=== PATIENT | male | born 1955 | race Caucasian/White ===

== ENCOUNTER 2021-01-23 15:11 | Inpatient (IN) ==
[2021-01-23] MEDS ORDERED: SODIUM CHLORIDE 0.9% 1000ML 1,000 ML IV ONE ×2 (15:46→16:53)
--- NOTE | 2021-01-23 15:57 | XRay Report ---
XR chest 1V portable HISTORY: 65 years-old Male SOB acute shortness of breath COMPARISON: None TECHNIQUE: Portable AP view of the chest FINDINGS: Cardiac mediastinal and hilar silhouettes are within normal limits. Minimal left lung base opacities suggest atelectasis. There is no pneumothorax, pleural effusion, airspace consolidation or overt pulm onary edema. Degenerative changes of the shoulders and spine. IMPRESSION: No acute process. ACT 112: Negative or not required by law. The above report was generated using voice recognition software. It may contain grammatical, syntax o r spelling errors. Electronically signed by: Tomas Liu M.D. 01/23/2021 3:55 PM
[2021-01-23 16:17] LABS: Partial Thromboplastin Ratio 1.1; Partial Thromboplastin Time 27.9 Seconds (21.0-31.0); Prothrombin Time 10.3 Seconds (9.0-12.0)
[2021-01-23 16:22] LABS: Alanine Aminotransferase 47 U/L (12-78); Albumin Level 2.5 gm/dl (3.4-5.0); Aspartate Aminotransferase 54 U/L (15-37); BUN Creatinine Ratio 15.1 (10-20); Blood Urea Nitrogen 21 mg/dl (7-18); Carbon Dioxide 22 mmol/L (21-32); Chloride 101 mmol/L (98-107); Est GFR (African American) 62.6 ml/min; Glucose 117 mg/dl (70-99); Potassium 3.8 mmol/L (3.5-5.1); Sodium 135 mmol/L (136-145)
[2021-01-23 16:26] LABS: Albumin Globulin Ratio 0.6 (0.9-2); Alkaline Phosphatase 92 U/L (45-117); Bilirubin,Total 1.6 mg/dl (0.2-1); Globulin 4.1 gm/dl (2.5-4.0); Total Protein 6.6 gm/dl (6.4-8.2); Troponin I < 0.015 ng/ml (0-0.045)
[2021-01-23 16:47] LABS: ALC (manual) 1.19 K/uL (1.2-3.4); ANC (manual) 4.36 K/uL (1.4-6.5); Basophils % (manual) 1.7 %; Hematocrit (blood only) 48.1 % (42-52); Hemoglobin 16.9 g/dL (14.0-18.0); Lymphocytes % (manual) 3.4 %; Mean Corpuscular Hemoglobin 29.7 pg (25-34); Mean Corpuscular Hgb Conc 35.1 g/dL (32-36); Mean Corpuscular Volume 84.5 fL (80-100); Mean Platelet Volume 12.2 fL (7.4-10.4); Monocytes # (manual) 0.36 K/uL (0.11-0.59); Neutrophils # (manual) 4.36 K/uL (1.4-6.5); Neutrophils % (manual) 72.5 %; Platelet Count 43 K/uL (130-400); RDW Standard Deviation 40.3 fL (36.4-46.3); Reactive Lymphocytes # (manual) 0.99 K/uL; Reactive Lymphocytes % (manual) 16.4 %; Red Blood Count 5.69 M/uL (4.7-6.1); White Blood Count 6.01 K/uL (4.8-10.8)
--- NOTE | 2021-01-23 18:00 | Emergency Department Note ---
History of Present Illness General Chief complaint: Respiratory Problems Stated complaint: TROUBLE BREATHING,RAPID HR/FEVER Time Seen by Provider: 01/23/21 15:39 Source: patient Mode of arrival: ambulatory Limitations: no limitations History of Present Illness Provider complaint: cough, vomiting Onset (ago): week(s) 3 Maximum Pain Intensity: 9 Associated symptoms: + cough, + loss of appetite, + malaise, + nausea/vomiting and + weakness; no chest pain, no fever/chills, no headaches or no shortness of breath Treatments prior to arrival: none This is a 65-year-old male presents the emergency department due to concern for persistent cough, shortness of breath, vomiting, and dehydration. Patient states he has been ill over the last 2 weeks, has been seen twice including it at the [facility] emergency room. Patient states he has undergone to test for Covid which were both negative. He states he has had labs and CT of the chest done. He states he still feels ill, cough to the point of vomiting, and cannot sleep, and "feels like he is going to ". 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 At [facility] patient underwent labs as well as CT imaging. Patient found at that time to have a platelet count of 111, CRP high at 63, procalcitonin high at 0.80, bilirubin 1.4, creatinine 1.5, sodium 130. CT imaging of the chest was performed to rule out PE. No PE noted, no evidence of infiltrate or edema. Patient had a negative troponin at that time as well as a negative viral respiratory panel. Pt seen during a time of high acuity and national emergency pandemic while wearing PPE. Home Medications Medication Instructions Recorded Confirmed Type benzonatate 100 mg capsule 100 mg PO TID PRN 01/23/21 01/23/21 History lisinopril 10 mg tablet 10 mg PO DAILY 01/23/21 01/23/21 History prednisone 20 mg tablet 20 mg PO UD 01/23/21 01/23/21 History Allergies Allergy/AdvReac Type Severity Reaction Status Date / Time amoxicillin Allergy Rash Verified 01/23/21 19:15 Past Med/Surg History Medical History (Updated 01/25/21 @ 11:33 by Graciela Hayden DO) History of TIA (transient ischemic attack) HTN (hypertension) Surgical History (Updated 01/24/21 @ 13:52 by Danielle Jeffries PA-C) History of umbilical hernia repair History of vein stripping Social History Smoking Status: Never smoker Second Hand Exposure: No; Do You Dip or Chew Tobacco: No; Tobacco Cessation Education Requested by Patient: No Hx Alcohol Use: No Hx Substance Use: No Preferred Language: Croatian French Cord Binder Required: No Beliefs That Will Affect Care: None Current Living Situation: Family Current Living Situation Comment: Lives with son. Other Information That Helps Us Care for You: No Feels Safe at Home: Yes Safety Concerns: Feels Safe At This Time Assistive Devices: None Review of Systems A total of 10 systems reviewed and were otherwise negative All systems reviewed & are unremarkable except as noted in HPI & below Physical Exam Vital Signs Vital Signs - 24 hr 01/23/21 15:20 01/23/21 16:44 01/23/21 18:00 Temperature 36.5 C Temperature Source Temporal Artery Scan Pulse Rate 103 H Pulse Rate [Right Finger] 87 66 Pulse Rhythm Regular Pulse Rhythm [Right Finger] Regular Regular Pulse Strength Normal Pulse Strength [Right Finger] Normal Normal Respiratory Rate 20 18 16 Respiratory Effort / Characteristics Non-Labored Spontaneous Non-Labored Non-Labored Respiratory Depth Normal Normal Normal Respiratory Pattern Regular Regular Blood Pressure 108/68 Blood Pressure [Right Arm] 103/62 113/61 Blood Pressure Mean 81 Blood Pressure Mean [Right Arm] 75 78 Blood Pressure Position Sitting Blood Pressure Position [Right Arm] Lying Lying Pulse Oximetry 96 96 97 Oxygen Delivery Method Room Air Room Air Room Air Sepsis Recent Fever Within 48 Hours No Sepsis New/Unexplained Change in Mental Status No Sepsis Action Taken by Nursing No Action Required GENERAL: alert, ill and anxious appearing, well nourished, no distress, non- toxic EYE EXAM: normal conjunctiva, PERRL and EOM's grossly intact OROPHARYNX: no exudate, no erythema, lips, buccal mucosa, and tongue normal and mucous membranes are moist NECK: supple, no nuchal rigidity, no adenopathy, non-tender LUNGS: Clear to auscultation. Normal chest wall mechanics, no w/r/r HEART: no murmurs, S1 normal and S2 normal ABDOMEN: abdomen soft, non-tender, normo-active bowel sounds, no masses, no rebound or guarding. BACK: Back is symmetrical on inspection and there is no deformity, no midline tenderness, no CVA tenderness. SKIN: no rashes and no bruising UPPER EXTREMITIES: upper extremities are grossly normal. FROM, nml pulses b/l. LOWER EXTREMITIES: No pitting edema. FROM, nml pulses b/l. NEURO EXAM: Normal sensorium, cranial nerves II-XII grossly intact, normal speech, no gross weakness of arms, no gross weakness of legs. Gross sensation intact. Course Course 1729: Patient sleeping, IV fluids running, vital signs stable. Updated son at bedside. Some concern for possible exposure to mice droppings as he was in a cabin "at camp" over the last 3 weeks. Son states he also had in upper respiratory infection which lasted several days although he improved fairly quickly. He states no one also had visited his dad at camp seem to be ill during their stay. 0: Son states patient seems improved although still not acting completely himself. Patient states he is feeling improved, no obvious respiratory distress, no coughing fits noted. I did update them on additional results. 1950: Case discussed with Dr. Khan. Labs for tickborne illness still pending at this time, send out miscellaneous test obtained for hantavirus. Administered Medications Doxycycline Hyclate (Doxycycline Hyclate 100 Mg Cap) 100 mg PO BID BETTY Stop: 02/03/21 08:59 Last Admin: 01/25/21 09:58 Dose: 100 mg Documented by: [id number] Admin: 01/24/21 21:53 Dose: 100 mg Documented by: [id number] Admin: 01/24/21 07:22 Dose: 100 mg Documented by: [id number] Ceftriaxone Sodium 2,000 mg/ (Dextrose) 70 mls @ 100 mls/hr IV DAILY BETTY; Protocol Stop: 01/26/21 08:59 Last Infusion: 01/25/21 10:59 Dose: 0 mls/hr Documented by: [id number] Admin: 01/25/21 10:17 Dose: 100 mls/hr Documented by: [id number] Infusion: 01/24/21 11:53 Dose: 0 mls/hr Documented by: [id number] Admin: 01/24/21 11:02 Dose: 100 mls/hr Documented by: [id number] Lisinopril (Lisinopril 10 Mg Tab) 10 mg PO DAILY BETTY Stop: 02/23/21 08:59 Last Admin: 01/25/21 09:58 Dose: Not Given Documented by: [id number] Admin: 01/24/21 07:22 Dose: 10 mg Documented by: [id number] Discontinued Medications Sodium Chloride (Nss 1000ml) 1,000 mls @ 999 mls/hr IV .Q1H1M ONE Stop: 01/23/21 16:46 Last Infusion: 01/23/21 18:07 Dose: 0 mls/hr Documented by: [id number] Admin: 01/23/21 17:02 Dose: 999 mls/hr Documented by: [id number] Sodium Chloride (Nss 1000ml) 1,000 mls @ 999 mls/hr IV .Q1H1M ONE Stop: 01/23/21 17:53 Last Infusion: 01/23/21 18:07 Dose: 0 mls/hr Documented by: [id number] Admin: 01/23/21 17:02 Dose: 999 mls/hr Documented by: [id number] Potassium Chloride/Sodium Chloride (Normal Saline W/20 Meq Kcl) 20 meq in 1,000 mls @ 80 mls/hr IV .[id number] ONE Stop: 01/24/21 11:29 Last Infusion: 01/24/21 11:32 Dose: 0 mls/hr Documented by: [id number] Infusion: 01/24/21 06:40 Dose: 80 mls/hr Documented by: [id number] Admin: 01/23/21 23:00 Dose: 80 mls/hr Documented by: [id number] Doxycycline Hyclate 100 mg/ (Dextrose) 110 mls @ 50 mls/hr IV NOW STA Stop: 01/24/21 01:00 Last Infusion: 01/24/21 01:41 Dose: 0 mls/hr Documented by: [id number] Admin: 01/23/21 23:19 Dose: 50 mls/hr Documented by: [id number] Medical Decision Making Differential Diagnosis Differential: Gastroenteritis, Food Borne, Esophageal Perforation, , Electrolyte Abnormality, Dehydration, Intraabdominal Infection, UTI/Pyelonephritis, Bowel Obstruction, Biliary Pathology, amongst other pathology entertained. Medical Records Attestation: I reviewed the patient's medical records. Home Medications Current Medication List: was personally reviewed by me Laboratory Data Attestation: I reviewed the patient's lab results. Result diagrams: 01/25/21 09:12 01/25/21 09:12 Lab Results 01/23/21 01/23/21 01/23/21 Range/Units 15:50 15:50 15:50 WBC 6.01 (4.8-10.8) K/uL RBC 5.69 (4.7-6.1) M/uL Hgb 16.9 (14.0-18.0) g/dL Hct 48.1 (42-52) % MCV 84.5 (80-100) fL MCH 29.7 (25-34) pg MCHC 35.1 (32-36) g/dL RDW Std Deviation 40.3 (36.4-46.3) fL RDW Coeff of Rosalinda 13.0 (11.5-14.5) % Plt Count 43 L (130-400) K/uL MPV 12.2 H (7.4-10.4) fL Neutrophils % (Manual) 72.5 % Lymphocytes % (Manual) 3.4 % Reactive Lymphs % (Man) 16.4 % Monocytes % (Manual) 6.0 % Eosinophils % (Manual) % Basophils % (Manual) 1.7 % Neutrophils # (Manual) 4.36 (1.4-6.5) K/uL Total Absolute Neuts 4.36 (1.4-6.5) K/uL Lymphocytes # (Manual) 0.20 L (1.2-3.4) K/uL Reactive Lymphs # 0.99 K/uL Total Abs Lymphocytes 1.19 L (1.2-3.4) K/uL Monocytes # (Manual) 0.36 (0.11-0.59) K/uL Eosinophils # (Manual) (0-0.5) K/uL Basophils # (Manual) 0.10 (0-0.2) K/uL PT 10.3 (9.0-12.0) Seconds INR 1.0 (0.9-1.1) APTT 27.9 (21.0-31.0) Seconds PTT Ratio 1.1 Sodium 135 L (136-145) mmol/L Potassium 3.8 (3.5-5.1) mmol/L Chloride 101 (98-107) mmol/L Carbon Dioxide 22 (21-32) mmol/L Anion Gap 12.0 H (3-11) BUN 21 H (7-18) mg/dl Creatinine 1.38 (0.6-1.4) mg/dl Est Cr Clr Drug Dosing Not Reportable Est GFR ( Amer) 62.6 ml/min Est GFR (Non-Af Amer) 54.0 ml/min BUN/Creatinine Ratio 15.1 (10-20) Glucose 117 H (70-99) mg/dl Lactate (0.4-2.0) mmol/L Calcium 8.0 L (8.5-10.1) mg/dl Magnesium 2.0 (1.8-2.4) mg/dl Total Bilirubin 1.6 H (0.2-1) mg/dl AST 54 H (15-37) U/L ALT 47 (12-78) U/L Alkaline Phosphatase 92 (45-117) U/L Ammonia (11-32) umol/L Lactate Dehydrogenase (87-241) U/L Troponin I < 0.015 (0-0.045) ng/ml Total Protein 6.6 (6.4-8.2) gm/dl Albumin 2.5 L (3.4-5.0) gm/dl Globulin 4.1 H (2.5-4.0) gm/dl Albumin/Globulin Ratio 0.6 L (0.9-2) Procalcitonin (0-0.5) ng/ml TSH 1.570 (0.300-4.500) uIu/ml Adenovirus (PCR) (NotDetected) Anaplasma Smear Babesia Smear B. pertussis DNA (PCR) (NotDetected) B.parapertussis DNA PCR (NotDetected) Lyme Disease IgG Ab (Negative) Lyme Disease IgM Ab (Negative) C. pneumoniae DNA (PCR) (NotDetected) Coronavirus OC43 (PCR) (NotDetected) Coronavirus HKU1 (PCR) (NotDetected) Coronavirus 229E (PCR) (NotDetected) SARS-CoV-2 (PCR) (NotDetected) Coronavirus NL63 (PCR) (NotDetected) Human Metapneumovir PCR (NotDetected) Influenza Type A (PCR) (NotDetected) Influenza Type B (PCR) (NotDetected) M. pneumoniae (PCR) (NotDetected) Parainfluenza 1 (PCR) (NotDetected) Parainfluenza 2 (PCR) (NotDetected) Parainfluenza 3 (PCR) (NotDetected) Parainfluenza 4 (PCR) (NotDetected) RSV (PCR) (NotDetected) Entero/Rhino (PCR) (NotDetected) 01/23/21 01/23/21 01/23/21 Range/Units 15:50 15:50 15:50 WBC (4.8-10.8) K/uL RBC (4.7-6.1) M/uL Hgb (14.0-18.0) g/dL Hct (42-52) % MCV (80-100) fL MCH (25-34) pg MCHC (32-36) g/dL RDW Std Deviation (36.4-46.3) fL RDW Coeff of Rosalinda (11.5-14.5) % Plt Count (130-400) K/uL MPV (7.4-10.4) fL Neutrophils % (Manual) % Lymphocytes % (Manual) % Reactive Lymphs % (Man) % Monocytes % (Manual) % Eosinophils % (Manual) % Basophils % (Manual) % Neutrophils # (Manual) (1.4-6.5) K/uL Total Absolute Neuts (1.4-6.5) K/uL Lymphocytes # (Manual) (1.2-3.4) K/uL Reactive Lymphs # K/uL Total Abs Lymphocytes (1.2-3.4) K/uL Monocytes # (Manual) (0.11-0.59) K/uL Eosinophils # (Manual) (0-0.5) K/uL Basophils # (Manual) (0-0.2) K/uL PT (9.0-12.0) Seconds INR (0.9-1.1) APTT (21.0-31.0) Seconds PTT Ratio Sodium (136-145) mmol/L Potassium (3.5-5.1) mmol/L Chloride (98-107) mmol/L Carbon Dioxide (21-32) mmol/L Anion Gap (3-11) BUN (7-18) mg/dl Creatinine (0.6-1.4) mg/dl Est Cr Clr Drug Dosing Est GFR ( Amer) ml/min Est GFR (Non-Af Amer) ml/min BUN/Creatinine Ratio (10-20) Glucose (70-99) mg/dl Lactate 2.5 H* (0.4-2.0) mmol/L Calcium (8.5-10.1) mg/dl Magnesium (1.8-2.4) mg/dl Total Bilirubin (0.2-1) mg/dl AST (15-37) U/L ALT (12-78) U/L Alkaline Phosphatase (45-117) U/L Ammonia (11-32) umol/L Lactate Dehydrogenase 343 H (87-241) U/L Troponin I (0-0.045) ng/ml Total Protein (6.4-8.2) gm/dl Albumin (3.4-5.0) gm/dl Globulin (2.5-4.0) gm/dl Albumin/Globulin Ratio (0.9-2) Procalcitonin (0-0.5) ng/ml TSH (0.300-4.500) uIu/ml Adenovirus (PCR) (NotDetected) Anaplasma Smear See Comment Babesia Smear See Comment B. pertussis DNA (PCR) (NotDetected) B.parapertussis DNA PCR (NotDetected) Lyme Disease IgG Ab (Negative) Lyme Disease IgM Ab (Negative) C. pneumoniae DNA (PCR) (NotDetected) Coronavirus OC43 (PCR) (NotDetected) Coronavirus HKU1 (PCR) (NotDetected) Coronavirus 229E (PCR) (NotDetected) SARS-CoV-2 (PCR) (NotDetected) Coronavirus NL63 (PCR) (NotDetected) Human Metapneumovir PCR (NotDetected) Influenza Type A (PCR) (NotDetected) Influenza Type B (PCR) (NotDetected) M. pneumoniae (PCR) (NotDetected) Parainfluenza 1 (PCR) (NotDetected) Parainfluenza 2 (PCR) (NotDetected) Parainfluenza 3 (PCR) (NotDetected) Parainfluenza 4 (PCR) (NotDetected) RSV (PCR) (NotDetected) Entero/Rhino (PCR) (NotDetected) 01/23/21 01/23/21 01/23/21 Range/Units 15:50 15:50 16:47 WBC (4.8-10.8) K/uL RBC (4.7-6.1) M/uL Hgb (14.0-18.0) g/dL Hct (42-52) % MCV (80-100) fL MCH (25-34) pg MCHC (32-36) g/dL RDW Std Deviation (36.4-46.3) fL RDW Coeff of Rosalinda (11.5-14.5) % Plt Count (130-400) K/uL MPV (7.4-10.4) fL Neutrophils % (Manual) % Lymphocytes % (Manual) % Reactive Lymphs % (Man) % Monocytes % (Manual) % Eosinophils % (Manual) % Basophils % (Manual) % Neutrophils # (Manual) (1.4-6.5) K/uL Total Absolute Neuts (1.4-6.5) K/uL Lymphocytes # (Manual) (1.2-3.4) K/uL Reactive Lymphs # K/uL Total Abs Lymphocytes (1.2-3.4) K/uL Monocytes # (Manual) (0.11-0.59) K/uL Eosinophils # (Manual) (0-0.5) K/uL Basophils # (Manual) (0-0.2) K/uL PT (9.0-12.0) Seconds INR (0.9-1.1) APTT (21.0-31.0) Seconds PTT Ratio Sodium (136-145) mmol/L Potassium (3.5-5.1) mmol/L Chloride (98-107) mmol/L Carbon Dioxide (21-32) mmol/L Anion Gap (3-11) BUN (7-18) mg/dl Creatinine (0.6-1.4) mg/dl Est Cr Clr Drug Dosing Est GFR ( Amer) ml/min Est GFR (Non-Af Amer) ml/min BUN/Creatinine Ratio (10-20) Glucose (70-99) mg/dl Lactate (0.4-2.0) mmol/L Calcium (8.5-10.1) mg/dl Magnesium (1.8-2.4) mg/dl Total Bilirubin (0.2-1) mg/dl AST (15-37) U/L ALT (12-78) U/L Alkaline Phosphatase (45-117) U/L Ammonia (11-32) umol/L Lactate Dehydrogenase (87-241) U/L Troponin I (0-0.045) ng/ml Total Protein (6.4-8.2) gm/dl Albumin (3.4-5.0) gm/dl Globulin (2.5-4.0) gm/dl Albumin/Globulin Ratio (0.9-2) Procalcitonin 4.91 H (0-0.5) ng/ml TSH (0.300-4.500) uIu/ml Adenovirus (PCR) Not Detected (NotDetected) Anaplasma Smear Babesia Smear B. pertussis DNA (PCR) Not Detected (NotDetected) B.parapertussis DNA PCR Not Detected (NotDetected) Lyme Disease IgG Ab Negative (Negative) Lyme Disease IgM Ab Positive A (Negative) C. pneumoniae DNA (PCR) Not Detected (NotDetected) Coronavirus OC43 (PCR) Not Detected (NotDetected) Coronavirus HKU1 (PCR) Not Detected (NotDetected) Coronavirus 229E (PCR) Not Detected (NotDetected) SARS-CoV-2 (PCR) Not Detected (NotDetected) Coronavirus NL63 (PCR) Not Detected (NotDetected) Human Metapneumovir PCR Not Detected (NotDetected) Influenza Type A (PCR) Not Detected (NotDetected) Influenza Type B (PCR) Not Detected (NotDetected) M. pneumoniae (PCR) Not Detected (NotDetected) Parainfluenza 1 (PCR) Not Detected (NotDetected) Parainfluenza 2 (PCR) Not Detected (NotDetected) Parainfluenza 3 (PCR) Not Detected (NotDetected) Parainfluenza 4 (PCR) Not Detected (NotDetected) RSV (PCR) Not Detected (NotDetected) Entero/Rhino (PCR) Not Detected (NotDetected) 01/23/21 01/23/21 01/24/21 Range/Units 17:54 21:05 08:51 WBC 5.79 (4.8-10.8) K/uL RBC 5.06 (4.7-6.1) M/uL Hgb 14.8 (14.0-18.0) g/dL Hct 43.2 (42-52) % MCV 85.4 (80-100) fL MCH 29.2 (25-34) pg MCHC 34.3 (32-36) g/dL RDW Std Deviation 42.2 (36.4-46.3) fL RDW Coeff of Rosalinda 13.4 (11.5-14.5) % Plt Count 70 L D (130-400) K/uL MPV 12.4 H (7.4-10.4) fL Neutrophils % (Manual) 41.3 % Lymphocytes % (Manual) 14.7 % Reactive Lymphs % (Man) 41.4 % Monocytes % (Manual) % Eosinophils % (Manual) 1.7 % Basophils % (Manual) 0.9 % Neutrophils # (Manual) 2.39 (1.4-6.5) K/uL Total Absolute Neuts 2.39 (1.4-6.5) K/uL Lymphocytes # (Manual) 0.85 L (1.2-3.4) K/uL Reactive Lymphs # 2.40 K/uL Total Abs Lymphocytes 3.25 (1.2-3.4) K/uL Monocytes # (Manual) (0.11-0.59) K/uL Eosinophils # (Manual) 0.10 (0-0.5) K/uL Basophils # (Manual) 0.05 (0-0.2) K/uL PT (9.0-12.0) Seconds INR (0.9-1.1) APTT (21.0-31.0) Seconds PTT Ratio Sodium (136-145) mmol/L Potassium (3.5-5.1) mmol/L Chloride (98-107) mmol/L Carbon Dioxide (21-32) mmol/L Anion Gap (3-11) BUN (7-18) mg/dl Creatinine (0.6-1.4) mg/dl Est Cr Clr Drug Dosing Est GFR ( Amer) ml/min Est GFR (Non-Af Amer) ml/min BUN/Creatinine Ratio (10-20) Glucose (70-99) mg/dl Lactate 1.1 (0.4-2.0) mmol/L Calcium (8.5-10.1) mg/dl Magnesium (1.8-2.4) mg/dl Total Bilirubin (0.2-1) mg/dl AST (15-37) U/L ALT (12-78) U/L Alkaline Phosphatase (45-117) U/L Ammonia 20.9 (11-32) umol/L Lactate Dehydrogenase (87-241) U/L Troponin I (0-0.045) ng/ml Total Protein (6.4-8.2) gm/dl Albumin (3.4-5.0) gm/dl Globulin (2.5-4.0) gm/dl Albumin/Globulin Ratio (0.9-2) Procalcitonin (0-0.5) ng/ml TSH (0.300-4.500) uIu/ml Adenovirus (PCR) (NotDetected) Anaplasma Smear Babesia Smear B. pertussis DNA (PCR) (NotDetected) B.parapertussis DNA PCR (NotDetected) Lyme Disease IgG Ab (Negative) Lyme Disease IgM Ab (Negative) C. pneumoniae DNA (PCR) (NotDetected) Coronavirus OC43 (PCR) (NotDetected) Coronavirus HKU1 (PCR) (NotDetected) Coronavirus 229E (PCR) (NotDetected) SARS-CoV-2 (PCR) (NotDetected) Coronavirus NL63 (PCR) (NotDetected) Human Metapneumovir PCR (NotDetected) Influenza Type A (PCR) (NotDetected) Influenza Type B (PCR) (NotDetected) M. pneumoniae (PCR) (NotDetected) Parainfluenza 1 (PCR) (NotDetected) Parainfluenza 2 (PCR) (NotDetected) Parainfluenza 3 (PCR) (NotDetected) Parainfluenza 4 (PCR) (NotDetected) RSV (PCR) (NotDetected) Entero/Rhino (PCR) (NotDetected) 01/24/21 Range/Units 08:51 WBC (4.8-10.8) K/uL RBC (4.7-6.1) M/uL Hgb (14.0-18.0) g/dL Hct (42-52) % MCV (80-100) fL MCH (25-34) pg MCHC (32-36) g/dL RDW Std Deviation (36.4-46.3) fL RDW Coeff of Rosalinda (11.5-14.5) % Plt Count (130-400) K/uL MPV (7.4-10.4) fL Neutrophils % (Manual) % Lymphocytes % (Manual) % Reactive Lymphs % (Man) % Monocytes % (Manual) % Eosinophils % (Manual) % Basophils % (Manual) % Neutrophils # (Manual) (1.4-6.5) K/uL Total Absolute Neuts (1.4-6.5) K/uL Lymphocytes # (Manual) (1.2-3.4) K/uL Reactive Lymphs # K/uL Total Abs Lymphocytes (1.2-3.4) K/uL Monocytes # (Manual) (0.11-0.59) K/uL Eosinophils # (Manual) (0-0.5) K/uL Basophils # (Manual) (0-0.2) K/uL PT (9.0-12.0) Seconds INR (0.9-1.1) APTT (21.0-31.0) Seconds PTT Ratio Sodium 138 (136-145) mmol/L Potassium 3.7 (3.5-5.1) mmol/L Chloride 106 (98-107) mmol/L Carbon Dioxide 24 (21-32) mmol/L Anion Gap 8.0 (3-11) BUN 18 (7-18) mg/dl Creatinine 0.90 D (0.6-1.4) mg/dl Est Cr Clr Drug Dosing 112.3 Est GFR ( Amer) 105.0 ml/min Est GFR (Non-Af Amer) 90.6 ml/min BUN/Creatinine Ratio 19.6 (10-20) Glucose 84 (70-99) mg/dl Lactate (0.4-2.0) mmol/L Calcium 7.8 L (8.5-10.1) mg/dl Magnesium (1.8-2.4) mg/dl Total Bilirubin 1.0 D (0.2-1) mg/dl AST 34 (15-37) U/L ALT 36 (12-78) U/L Alkaline Phosphatase 72 (45-117) U/L Ammonia (11-32) umol/L Lactate Dehydrogenase (87-241) U/L Troponin I (0-0.045) ng/ml Total Protein 5.8 L (6.4-8.2) gm/dl Albumin 2.0 L (3.4-5.0) gm/dl Globulin 3.8 (2.5-4.0) gm/dl Albumin/Globulin Ratio 0.5 L (0.9-2) Procalcitonin (0-0.5) ng/ml TSH (0.300-4.500) uIu/ml Adenovirus (PCR) (NotDetected) Anaplasma Smear Babesia Smear B. pertussis DNA (PCR) (NotDetected) B.parapertussis DNA PCR (NotDetected) Lyme Disease IgG Ab (Negative) Lyme Disease IgM Ab (Negative) C. pneumoniae DNA (PCR) (NotDetected) Coronavirus OC43 (PCR) (NotDetected) Coronavirus HKU1 (PCR) (NotDetected) Coronavirus 229E (PCR) (NotDetected) SARS-CoV-2 (PCR) (NotDetected) Coronavirus NL63 (PCR) (NotDetected) Human Metapneumovir PCR (NotDetected) Influenza Type A (PCR) (NotDetected) Influenza Type B (PCR) (NotDetected) M. pneumoniae (PCR) (NotDetected) Parainfluenza 1 (PCR) (NotDetected) Parainfluenza 2 (PCR) (NotDetected) Parainfluenza 3 (PCR) (NotDetected) Parainfluenza 4 (PCR) (NotDetected) RSV (PCR) (NotDetected) Entero/Rhino (PCR) (NotDetected) Imaging Data Radiologist's Impression: Chest X-Ray 01/23/21 15:24 XR chest 1V portable HISTORY: 65 years-old Male SOB acute shortness of breath COMPARISON: None TECHNIQUE: Portable AP view of the chest FINDINGS: Cardiac mediastinal and hilar silhouettes are within normal limits. Minimal left lung base opacities suggest atelectasis. There is no pneumothorax, pleural effusion, airspace consolidation or overt pulmonary edema. Degenerative changes of the shoulders and spine. IMPRESSION: No acute process. ACT 112: Negative or not required by law. The above report was generated using voice recognition software. It may contain grammatical, syntax or spelling errors. Electronically signed by: Tomas Liu M.D. 01/23/2021 3:[address] 01/23/21 17:57 CT head/brain wo con CLINICAL HISTORY: 65 years-old Male with intermittent confusion, hx cva. Acutely altered mental status TECHNIQUE: Multiple axial CT images of the head were obtained without contrast. A dose lowering technique was utilized adhering to the principles of ALARA. CT DOSE: 1215.61 mGy.cm COMPARISON: None. FINDINGS: Mildly motion degraded exam. No acute intracranial hemorrhage, midline shift, intracranial mass, hydrocephalus, territorial ischemia or abnormal extra-axial collection. The calvarium is intact. The paranasal sinuses, mastoid air cells, and middle ear cavities are clear. IMPRESSION: No acute intracranial abnormality. ACT 112: Negative or not required by law. The above report was generated using voice recognition software. It may contain grammatical, syntax or spelling errors. Electronically signed by: Tomas Liu M.D. 01/23/2021 6:56 PM ECG Data Attestation: I personally reviewed and interpreted this ECG as follows: Indication: + weakness Rate (beats per minute): 85 Rhythm: + normal sinus ECG Intervals/blocks: + Normal QRS and + Normal QT ECG Brady: + Normal ECG ST segments: + Normal ST segments and + T-wave inversions (isolated in III) ECG Findings: + PVCs MDM Narrative This is a 65-year-old male brought in by family due to concern for ongoing symptoms worsening over the last 2 weeks of weakness, fatigue, persistent cough leading to posttussive emesis, and decreased oral intake. Patient had been seen by both his PCP last week as well as at [facility] emergency room 3 days ago. Patient was hemodynamically stable on arrival here, able to answer questions appropriately and follow commands. No recent change in medications. Patient's PCP had placed him on prednisone, azithromycin, Tessalon Perles for gill spected URI. [facility] did perform labs, nasal swab viral panel, and CT angio of the chest. These were reassuring and patient was discharged home. Patient presents due to persistent ongoing symptoms. Initial labs here not highly suggestive. CT of the head performed due to patient's family reporting he seemed intermittently confused although patient was oriented on my evaluation here. Patient's chest x-ray unremarkable. Family concerned about possible exposure to illness from mice droppings of that as they state the [place] over the last 3 weeks had a lot of mice in it initially. I did add labs for tickborne illnesses as well as hantavirus after this discussion. I spoke with both the son and the daughter via phone. Patient was hydrated here and did report feeling better although not improved and family felt he was not yet "normal". Case discussed with hospitalist for additional management and evaluation at this time. Tickborne labs still pending as was found to virus at the time of this discussion. An order was placed for continuous cardiac monitoring. The monitor shows a rate of _70_ with _normal sinus_ rhythm. Impression & Plan Generalized weakness, Cough, Dehydration Discharge Plan Visit Data Chief Complaint: Respiratory Problems Stated Complaint: TROUBLE BREATHING,RAPID HR/FEVER ED Provider: Graciela Hayden Discharge Problem: Generalized weakness, Cough, Dehydration Patient Disposition: Admitted As Inpatient Condition: Fair Discharge Instructions Interventions: ED Discharge Assessment Last Done: 01/23/21 21:57
[2021-01-23 18:09] LABS: Adenovirus PCR Not Detected (NotDetected); Bordetella parapertussis PCR Not Detected (NotDetected); Bordetella pertussis PCR Not Detected (NotDetected); Chlamydia pneumoniae PCR Not Detected (NotDetected); Coronavirus 229E PCR Not Detected (NotDetected); Coronavirus CoV-2 (COVID19)PCR Not Detected (NotDetected); Coronavirus HKU1 PCR Not Detected (NotDetected); Coronavirus NL63 PCR Not Detected (NotDetected); Coronavirus OC43PCR Not Detected (NotDetected); Human Metapneumovirus PCR Not Detected (NotDetected); Influenza A PCR Not Detected (NotDetected); Influenza B PCR Not Detected (NotDetected); Mycoplasma pneumoniae PCR Not Detected (NotDetected); Parainfluenza Virus 1 PCR Not Detected (NotDetected); Parainfluenza Virus 2 PCR Not Detected (NotDetected); Parainfluenza Virus 3 PCR Not Detected (NotDetected); Parainfluenza Virus 4 PCR Not Detected (NotDetected); Respiratory Syncytial VirusPCR Not Detected (NotDetected); Rhinovirus/Enterovirus PCR Not Detected (NotDetected)
--- NOTE | 2021-01-23 18:57 | CT Scan Report ---
CT head/brain wo con CLINICAL HISTORY: 65 years-old Male with intermittent confusion, hx cva. Acutely altered mental stat us TECHNIQUE: Multiple axial CT images of the head were obtained without contrast. A dose lowering tech nique was utilized adhering to the principles of ALARA. CT DOSE: 1215.61 mGy.cm COMPARISON: None. FINDINGS: Mildly motion degraded exam. No acute intracranial hemorrhage, midline shift, intracranial mass, hydr ocephalus, territorial ischemia or abnormal extra-axial collection. The calvarium is intact. The paranasal sinuses, mastoid air cells, and middle ear cavities are clear . IMPRESSION: No acute intracranial abnormality. ACT 112: Negative or not required by law. The above report was generated using voice recognition software. It may contain grammatical, syntax o r spelling errors. Electronically signed by: Tomas Liu M.D. 01/23/2021 6:56 PM
--- NOTE | 2021-01-23 20:25 | History & Physical Report ---
Date of Service January 23, 2021 Assessment & Plan (1) Fever: Plan: Secondary to Lyme disease Pneumonitis Cough symptoms improved on outpatient [facility] prednisone course hypertension, stable history TIA as per records hx DVT status post anticoagulation Thrombocytopenia likely from tickborne infection OBS GMF Doxycycline IVF DVT prophylaxis. SCDs Re: Thrombocytopenia Full code Patient son requesting updates from providers. Mr. Kevin Sheth, contact #[phone]. Text document was generated using [employer] voice recognition software. It may contain grammatical or spelling errors. Kindly contact undersigned for clarification of any documentation item in question. History of Present Illness Chief Complaint: Fever, poor appetite, confusion as per family Primary Care Provider: Dr. Reddy History obtained from patient, family, and records. Medical history significant for hypertension, history TIA, history DVT status post anticoagulation, urolithiasis. Patient has not been well the last 2 weeks. Junky cough symptoms with shortness of breath, fever, chills, headaches with coughing, fever. No syncope as per patient Patient gives history of tick bites during [place] prior to onset of symptoms. Patient seen at PCPs office last week. Impression was pneumonitis. Patient prescribed prednisone and azithromycin course. Outpatient COVID-19 test was negative. Worsening symptoms 2 days after seeing PCP. Nausea, emesis. No abdominal pain. Patient evaluated at [facility] ER [address] angio chest negative for pulmonary embolism. No dense consolidation or findings typical of COVID-19 infection appreciated. Patient discharged from the ER. Cough symptoms improving as per patient. Patient still noted to be weak at home by family and confused. Still febrile episodes as per family. Poor appetite. Patient brought to the ER for evaluation. Improved mentation after IV hydration administered at the ER as per patient son. 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 Allergies Allergy/AdvReac Type Severity Reaction Status Date / Time amoxicillin Allergy Rash Verified 01/23/21 19:15 Home Medications Medication Instructions Recorded Confirmed Type benzonatate 100 mg capsule 100 mg PO TID PRN 01/23/21 01/23/21 History lisinopril 10 mg tablet 10 mg PO DAILY 01/23/21 01/23/21 History prednisone 20 mg tablet 20 mg PO UD 01/23/21 01/23/21 History Past Med/Surg History Medical History (Updated 01/24/21 @ 13:52 by Danilele Jeffries PA-C) History of TIA (transient ischemic attack) HTN (hypertension) Surgical History (Updated 01/24/21 @ 13:52 by Danielle Jeffries PA-C) History of umbilical hernia repair History of vein stripping Social History Smoking Status: Never smoker Second Hand Exposure: No; Do You Dip or Chew Tobacco: No; Tobacco Cessation Education Requested by Patient: No Hx Alcohol Use: No Hx Substance Use: No 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 Other Information That Helps Us Care for You: No Feels Safe at Home: Yes Safety Concerns: Feels Safe At This Time Assistive Devices: None Review of Systems Review of Systems: As per HPI, all 10 systems reviewed, all other ROS negative Physical Exam Physical Exam: GENERAL: Slightly uncomfortable, obese, no respiratory distress SKIN: Normal color, warm HEENT: [place] palpebral conjunctivae, no ptosis, dry buccal mucosa NECK : Supple, short neck, no tenderness CHEST : CTA, no tenderness HEART : RRR, no obvious murmurs ABDOMEN: Some distention, nontender EXTREMITIES : No LE swelling/tenderness, no other conspicuous deformities noted NEUROLOGIC : Coherent, no facial asymmetry, no other gross focality Results & Data Results & Data ([facility]) Vital Signs (Past 12 Hours) Vital Signs Temp Pulse Pulse Resp BP BP Pulse Ox 01/23/21 20:00 75 16 105/57 L 97 01/23/21 18:00 66 16 113/61 97 01/23/21 16:44 87 18 103/62 96 01/23/21 15:20 36.5 C 103 H 20 108/68 96 Laboratory Results Laboratory Results WBC 6.01 K/uL (4.8-10.8) 01/23/21 15:50 RBC 5.69 M/uL (4.7-6.1) 01/23/21 15:50 Hgb 16.9 g/dL (14.0-18.0) 01/23/21 15:50 Hct 48.1 % (42-52) 01/23/21 15:50 MCV 84.5 fL (80-100) 01/23/21 15:50 MCH 29.7 pg (25-34) 01/23/21 15:50 MCHC 35.1 g/dL (32-36) 01/23/21 15:50 RDW Std Deviation 40.3 fL (36.4-46.3) 01/23/21 15:50 RDW Coeff of Rosalinda 13.0 % (11.5-14.5) 01/23/21 15:50 Plt Count 43 K/uL (130-400) L 01/23/21 15:50 MPV 12.2 fL (7.4-10.4) H 01/23/21 15:50 Neutrophils % (Manual) 72.5 % 01/23/21 15:50 Lymphocytes % (Manual) 3.4 % 01/23/21 15:50 Reactive Lymphs % (Man) 16.4 % 01/23/21 15:50 Monocytes % (Manual) 6.0 % 01/23/21 15:50 Basophils % (Manual) 1.7 % 01/23/21 15:50 Neutrophils # (Manual) 4.36 K/uL (1.4-6.5) 01/23/21 15:50 Total Absolute Neuts 4.36 K/uL (1.4-6.5) 01/23/21 15:50 Lymphocytes # (Manual) 0.20 K/uL (1.2-3.4) L 01/23/21 15:50 Reactive Lymphs # 0.99 K/uL 01/23/21 15:50 Total Abs Lymphocytes 1.19 K/uL (1.2-3.4) L 01/23/21 15:50 Monocytes # (Manual) 0.36 K/uL (0.11-0.59) 01/23/21 15:50 Basophils # (Manual) 0.10 K/uL (0-0.2) 01/23/21 15:50 PT 10.3 Seconds (9.0-12.0) 01/23/21 15:50 INR 1.0 (0.9-1.1) 01/23/21 15:50 APTT 27.9 Seconds (21.0-31.0) 01/23/21 15:50 PTT Ratio 1.1 01/23/21 15:50 Sodium 135 mmol/L (136-145) L 01/23/21 15:50 Potassium 3.8 mmol/L (3.5-5.1) 01/23/21 15:50 Chloride 101 mmol/L (98-107) 01/23/21 15:50 Carbon Dioxide 22 mmol/L (21-32) 01/23/21 15:50 Anion Gap 12.0 (3-11) H 01/23/21 15:50 BUN 21 mg/dl (7-18) H 01/23/21 15:50 Creatinine 1.38 mg/dl (0.6-1.4) 01/23/21 15:50 Est Cr Clr Drug Dosing Not Reportable 01/23/21 15:50 Est GFR ( Amer) 62.6 ml/min 01/23/21 15:50 Est GFR (Non-Af Amer) 54.0 ml/min 01/23/21 15:50 BUN/Creatinine Ratio 15.1 (10-20) 01/23/21 15:50 Glucose 117 mg/dl (70-99) H 01/23/21 15:50 Lactate 1.1 mmol/L (0.4-2.0) 01/23/21 17:54 Calcium 8.0 mg/dl (8.5-10.1) L 01/23/21 15:50 Magnesium 2.0 mg/dl (1.8-2.4) 01/23/21 15:50 Total Bilirubin 1.6 mg/dl (0.2-1) H 01/23/21 15:50 AST 54 U/L (15-37) H 01/23/21 15:50 ALT 47 U/L (12-78) 01/23/21 15:50 Alkaline Phosphatase 92 U/L (45-117) 01/23/21 15:50 Troponin I < 0.015 ng/ml (0-0.045) 01/23/21 15:50 Total Protein 6.6 gm/dl (6.4-8.2) 01/23/21 15:50 Albumin 2.5 gm/dl (3.4-5.0) L 01/23/21 15:50 Globulin 4.1 gm/dl (2.5-4.0) H 01/23/21 15:50 Albumin/Globulin Ratio 0.6 (0.9-2) L 01/23/21 15:50 Adenovirus (PCR) Not Detected (NotDetected) 01/23/21 16:47 B. pertussis DNA (PCR) Not Detected (NotDetected) 01/23/21 16:47 B.parapertussis DNA PCR Not Detected (NotDetected) 01/23/21 16:47 C. pneumoniae DNA (PCR) Not Detected (NotDetected) 01/23/21 16:47 Coronavirus OC43 (PCR) Not Detected (NotDetected) 01/23/21 16:47 Coronavirus HKU1 (PCR) Not Detected (NotDetected) 01/23/21 16:47 Coronavirus 229E (PCR) Not Detected (NotDetected) 01/23/21 16:47 SARS-CoV-2 (PCR) Not Detected (NotDetected) 01/23/21 16:47 Coronavirus NL63 (PCR) Not Detected (NotDetected) 01/23/21 16:47 Human Metapneumovir PCR Not Detected (NotDetected) 01/23/21 16:47 Influenza Type A (PCR) Not Detected (NotDetected) 01/23/21 16:47 Influenza Type B (PCR) Not Detected (NotDetected) 01/23/21 16:47 M. pneumoniae (PCR) Not Detected (NotDetected) 01/23/21 16:47 Parainfluenza 1 (PCR) Not Detected (NotDetected) 01/23/21 16:47 Parainfluenza 2 (PCR) Not Detected (NotDetected) 01/23/21 16:47 Parainfluenza 3 (PCR) Not Detected (NotDetected) 01/23/21 16:47 Parainfluenza 4 (PCR) Not Detected (NotDetected) 01/23/21 16:47 RSV (PCR) Not Detected (NotDetected) 01/23/21 16:47 Entero/Rhino (PCR) Not Detected (NotDetected) 01/23/21 16:47 Impressions Chest X-Ray 01/23/21 15:24 XR chest 1V portable HISTORY: 65 years-old Male SOB acute shortness of breath COMPARISON: None TECHNIQUE: Portable AP view of the chest FINDINGS: Cardiac mediastinal and hilar silhouettes are within normal limits. Minimal left lung base opacities suggest atelectasis. There is no pneumothorax, pleural effusion, airspace consolidation or overt pulmonary edema. Degenerative changes of the shoulders and spine. IMPRESSION: No acute process. ACT 112: Negative or not required by law. The above report was generated using voice recognition software. It may contain grammatical, syntax or spelling errors. Electronically signed by: Tomas Liu M.D. 01/23/2021 3:[address] 01/23/21 17:57 CT head/brain wo con CLINICAL HISTORY: 65 years-old Male with intermittent confusion, hx cva. Acutely altered mental status TECHNIQUE: Multiple axial CT images of the head were obtained without contrast. A dose lowering technique was utilized adhering to the principles of ALARA. CT DOSE: 1215.61 mGy.cm COMPARISON: None. FINDINGS: Mildly motion degraded exam. No acute intracranial hemorrhage, midline shift, intracranial mass, hydrocephalus, territorial ischemia or abnormal extra-axial collection. The calvarium is intact. The paranasal sinuses, mastoid air cells, and middle ear cavities are clear. IMPRESSION: No acute intracranial abnormality. ACT 112: Negative or not required by law. The above report was generated using voice recognition software. It may contain grammatical, syntax or spelling errors. Electronically signed by: Tomas Liu M.D. 01/23/2021 6:56 PM Diagnostic Findings EKG as per my interpretation rate 85, NSR, normal axis, T wave abnormalities inferior leads, PVCs
[2021-01-23 20:49] LABS: Lyme Ab IgG w/WB Rflx Negative (Negative)
[2021-01-23 20:51] LABS: Lyme Ab IgM w/WB Rflx Positive (Negative)
[2021-01-23] MEDS ORDERED: ACETAMINOPHEN 325 MG TAB PO PRN (22:30)
[2021-01-23] MEDS ORDERED: PROMETHAZINE HCL 12.5 MG in SODIUM CHLORIDE 0.9% 50 ML IV PRN (22:30)
[2021-01-23] MEDS ORDERED: DOXYCYCLINE HYCLATE 100 MG in DEXTROSE 5% 100 ML IV STA (22:49)
[2021-01-23] MEDS ORDERED: NSS + 20MEQ KCL 20 MEQ/1,000 ML BAG IV ONE (23:00)
[2021-01-24] MEDS: lisinopril 10 MG TAB PO SCH (07:22)
[2021-01-24] MEDS: DOXYCYCLINE HYCLATE 100 MG CAP PO SCH ×2 (07:22→21:53)
[2021-01-24 10:01] LABS: Hematocrit (blood only) 43.2 % (42-52); Hemoglobin 14.8 g/dL (14.0-18.0); Mean Corpuscular Hemoglobin 29.2 pg (25-34); Mean Corpuscular Hgb Conc 34.3 g/dL (32-36); Mean Corpuscular Volume 85.4 fL (80-100); Mean Platelet Volume 12.4 fL (7.4-10.4); Platelet Count 70 K/uL (130-400); RDW Coefficient of Variation 13.4 % (11.5-14.5); RDW Standard Deviation 42.2 fL (36.4-46.3); Red Blood Count 5.06 M/uL (4.7-6.1); White Blood Count 5.79 K/uL (4.8-10.8)
[2021-01-24 10:20] LABS: Albumin Globulin Ratio 0.5 (0.9-2); BUN Creatinine Ratio 19.6 (10-20); Calcium 7.8 mg/dl (8.5-10.1); Creatinine Clr Calc Pharmacy 112.3 ml/min; Est GFR (Non-African American) 90.6 ml/min; Globulin 3.8 gm/dl (2.5-4.0); Potassium 3.7 mmol/L (3.5-5.1); Total Protein 5.8 gm/dl (6.4-8.2)
[2021-01-24 10:24] LABS: ALC (manual) 3.25 K/uL (1.2-3.4); ANC (manual) 2.39 K/uL (1.4-6.5); Basophils # (manual) 0.05 K/uL (0-0.2); Basophils % (manual) 0.9 %; Eosinophils % (manual) 1.7 %; Lymphocytes # (manual) 0.85 K/uL (1.2-3.4); Lymphocytes % (manual) 14.7 %; Neutrophils # (manual) 2.39 K/uL (1.4-6.5); Neutrophils % (manual) 41.3 %; Reactive Lymphocytes % (manual) 41.4 %
[2021-01-24] MEDS: cefTRIAXone SODIUM 2,000 MG in DEXTROSE 5% 50 ML IV SCH (11:02)
--- NOTE | 2021-01-24 13:25 | Hospitalist Progress Note ---
Date of Service January 24, 2021 Assessment & Plan (1) Fever: (2) Lactic acidosis: (3) Positive Lyme disease serology: (4) JOSE (acute kidney injury): Plan: This is a 65-year-old male who has known past medical history of HTN, history of TIA who presents to ED secondary to ill feeling and fever off and on x3 weeks. He also reports 2 syncopal episodes in the last [address]: No acute abnormality Chest x-ray: No acute cardiopulmonary abnormality Procalcitonin 4.91, on 01/20 was 0.8 at outside facility Initially had acute renal insufficiency and lactic acidosis which resolved with IV fluid Initial Lyme titer IgM positive, Western blot pending Blood cultures pending Urinalysis ordered NO s/sx of sepsis on admission Report fever and viral like prodrome x 3 weeks Elevated procalcitonin Lactic acidosis +Lyme serology - WB pending transfer to [facility] due to reported syncope - look below for further work up Continue oral doxycycline 100mg bid for lyme; add 2g Rocephin daily empirically until cultures return in setting of elevated procalcitonin He had Chest CTA 01/20 which was negative, no acute indications to repeat at this time he did complete course of prednisone and oral azithromycin as outpt Syncope 2 prior syncopal episodes, last in ER waiting room last evening w/o prodromal symptoms possibly in setting of dehydration but r/o cardiogenic source will transfer to tele monitored bed to eval for arrhythmia in setting of lymes obtain echocardiogram, carotid doppler, orthostatics JOSE/Dehydration admitting cr 1.38, today 0.9 likely pre renal due to poor po intake Lactic acidosis resolved with IVF Thrombocytopenia possible in setting of infection/tick borne illness new, plt in 02/2019 wnl HTN continue lisinopril daily monitor DVT ppx: scd/teds, thrombocytopenia Dispo: transfer to tele floor, no discharge for today, continue i nfectious/syncopal work up FULL CODE PCP: Dr. Reddy Pt was seen and examined in collaboration with Dr. Romero, please see addendum Admission and Anticipated Discharge Date Admission Date: January 23, 2021 Supervising Physician Co-Signing Physician Notes Patient is seen and examined at bedside States feeling better today Reports cough with minimal expectoration Admits to having multiple tick bite Currently denies any chest pain, shortness breath, dizziness, nausea, abdominal pain Physical Exam: Vitals signs as noted above General Appearance:Obese, no apparent distress Head: normocephalic, Atraumatic Eyes: normal inspection, EOMI Neck: supple, Trachea midline Respiratory/Chest: Normal breath sounds, CTA Cardiovascular: S1, S2, No murmur Abdomen/GI:Soft, Non tender, Bowel sounds present Extremities/Musculoskeletal:normal inspection, no edema Neurologic/Psych:AAOX3, grossly no focal neurological deficits Skin: normal color, warm, + multiple bite lesions Lyme's disease Continue doxycycline Follow-up serology Follow-up cultures Syncope Agree with syncopal work-up as above Possible bronchitis Continue empiric antibiotics I personally reviewed the record. Patient is interviewed and examined at bedside. Patient's care is coordinated with Danielle Jeffries PA-C. Please refer to the documentation above for details of patient's presentation and for discussion of other issues. Subjective Patient was seen and examined in room 378-2. Follow-up febrile illness. Patient states he has been unwell for the past 3 weeks. His symptoms initially started when he was up at [facility] in [place] about 3 weeks ago. He developed a nagging hacking cough. His symptoms persisted which included fever, T-max 103. He admits to rash to right lower extremity ankle to knee, which resolved. Denies bull's-eye rash. He does admit to pulling off 3 flat ticks while at [place]. He denies any myalgias or arthralgias. He does complain of chills, sweats, flank, shortness of breath, hemoptysis, nausea and vomiting. His last episode of vomiting was yesterday. He continues to complain of SOB. "I'd swear I have covid, I have all the symptoms but 3 negative tests." He also admits to 2 syncopal episodes. One prior to evaluation at [facility] when he got a shower, got out of the shower and texted his friend, and then passed out with any presyncopal symptoms. He regained consciousness approximately 1 hour based off the time of his text message. He also had syncopal episode yesterday afternoon when sitting in the waiting room. He was told his eye went into the back of his head and he just, "went out." Both episodes he denies any presyncopal symptoms including lightheadedness, dizziness, diaphoresis, chest pain or shortness of breath. He denies having syncope in the past. He was told initially his first episode was likely due to dehydration due to poor intake. He was seen and evaluated at [facility] ED 01/20. At that time he underwent chest x-ray which showed no acute abnormalities. CT for PE was negative for acute PE. EKG revealed normal sinus rhythm. He had Covid test which was negative and a prior outpatient Covid test was negative. He received 2 L of IV fluid. His creatinine was 1.5. He was diagnosed with a diagnosis of viral illness. Review of Systems Review of Systems: All systems reviewed & are unremarkable except as noted in HPI & below Physical Exam Physical Exam: Gen: WD/WN, NAD, A&O x3 HEENT: Normocephalic, atraumatic, conjunctivae moist, sclerae anicteric, mucous membranes moist. Lung: Clear to Auscultation bilaterally, no wheezes/rales/rhonchi Heart: Regular rate, regular rhythm, no murmurs, rubs, or gallops Abdomen: Soft, NT, ND +BS x 4 Extremities: No edema Skin: Warm, no rash, negative turgor. Results & Data Results & Data ([facility]) Vital Signs (Past 12 Hours) Vital Signs Temp Pulse Resp BP Pulse Ox 01/24/21 07:38 36.4 C L 55 L 16 112/64 98 Laboratory Results Short CBC 01/23/21 01/23/21 01/24/21 Range/Units 15:50 15:50 08:51 WBC 6.01 5.79 (4.8-10.8) K/uL Hgb 16.9 14.8 (14.0-18.0) g/dL Hct 48.1 43.2 (42-52) % Plt Count 43 L 70 L D (130-400) K/uL Creatinine 1.38 (0.6-1.4) mg/dl 01/24/21 Range/Units 08:51 WBC (4.8-10.8) K/uL Hgb (14.0-18.0) g/dL Hct (42-52) % Plt Count (130-400) K/uL Creatinine 0.90 D (0.6-1.4) mg/dl BMP 01/23/21 01/24/21 15:50 08:51 Sodium 135 L 138 Potassium 3.8 3.7 Chloride 101 106 Carbon Dioxide 22 24 BUN 21 H 18 Creatinine 1.38 0.90 D Glucose 117 H 84 Calcium 8.0 L 7.8 L Cardiac Enzymes 01/23/21 Range/Units 15:50 Troponin I < 0.015 (0-0.045) ng/ml Liver Function 01/23/21 01/24/21 Range/Units 15:50 08:51 Total Bilirubin 1.6 H 1.0 D (0.2-1) mg/dl AST 54 H 34 (15-37) U/L ALT 47 36 (12-78) U/L Alkaline Phosphatase 92 72 (45-117) U/L Albumin 2.5 L 2.0 L (3.4-5.0) gm/dl Diagnostic Findings Chest X-Ray 01/23/21 15:24 XR chest 1V portable HISTORY: 65 years-old Male SOB acute shortness of breath COMPARISON: None TECHNIQUE: Portable AP view of the chest FINDINGS: Cardiac mediastinal and hilar silhouettes are within normal limits. Minimal left lung base opacities suggest atelectasis. There is no pneumothorax, pleural effusion, airspace consolidation or overt pulmonary edema. Degenerative changes of the shoulders and spine. IMPRESSION: No acute process. ACT 112: Negative or not required by law. The above report was generated using voice recognition software. It may contain grammatical, syntax or spelling errors. Electronically signed by: Tomas Liu M.D. 01/23/2021 3:[address] 01/23/21 17:57 CT head/brain wo con CLINICAL HISTORY: 65 years-old Male with intermittent confusion, hx cva. Acutely altered mental status TECHNIQUE: Multiple axial CT images of the head were obtained without contrast. A dose lowering technique was utilized adhering to the principles of ALARA. CT DOSE: 1215.61 mGy.cm COMPARISON: None. FINDINGS: Mildly motion degraded exam. No acute intracranial hemorrhage, midline shift, intracranial mass, hydrocephalus, territorial ischemia or abnormal extra-axial collection. The calvarium is intact. The paranasal sinuses, mastoid air cells, and middle ear cavities are clear. IMPRESSION: No acute intracranial abnormality. ACT 112: Negative or not required by law. The above report was generated using voice recognition software. It may contain grammatical, syntax or spelling errors. Electronically signed by: Tomas Liu M.D. 01/23/2021 6:56 PM Medications Administered Current Inpatient Medications Acetaminophen (Acetaminophen 325 Mg Tab) 650 mg PO Q4H PRN PRN Reason: pain/fever Stop: 02/22/21 22:29 Doxycycline Hyclate (Doxycycline Hyclate 100 Mg Cap) 100 mg PO BID [facility] Stop: 02/03/21 08:59 Last Admin: 01/24/21 07:22 Dose: 100 mg Documented by: Promethazine HCl 12.5 mg/ (Sodium Chloride) 50.5 mls @ 202 mls/hr IV Q6H PRN PRN Reason: Nausea And Vomiting Stop: 02/22/21 22:29 Ceftriaxone Sodium 2,000 mg/ (Dextrose) 70 mls @ 100 mls/hr IV DAILY [facility]; Protocol Stop: 01/26/21 08:59 Last Infusion: 01/24/21 11:53 Dose: Infused Documented by: Lisinopril (Lisinopril 10 Mg Tab) 10 mg PO DAILY [facility] Stop: 02/23/21 08:59 Last Admin: 01/24/21 07:22 Dose: 10 mg Documented by:
--- NOTE | 2021-01-24 15:26 | Ultrasound Report ---
CAROTID ARTERY ULTRASOUND CLINICAL HISTORY: syncope COMPARISON STUDY: None. TECHNIQUE: Real-time, grayscale, and color Doppler sonography of the carotid and vertebral arteries w as performed. Images were viewed in the transverse and longitudinal planes. FINDINGS: There is minimal atherosclerotic plaque present. Velocity measurements are listed below. COMMON CAROTID PEAK SYSTOLIC VELOCITY (CM/S): RIGHT 72 LEFT 110 ICA PEAK SYSTOLIC VELOCITY (CM/S): RIGHT 65 LEFT 85 Systolic ratios between the internal to common carotid arteries were normal. Antegrade flow is seen in the vertebral arteries. The external carotid arteries are patent. Blood pressure in the right arm measured 131/69. Blood pressure in the left arm measured 122/67. IMPRESSION: No evidence for a hemodynamically significant stenosis. ACT 112: Negative or not required by law. Electronically signed by: Per Grayson M.D. 01/24/2021 3:24 PM
--- NOTE | 2021-01-25 05:52 | Electrocardiogram Report ---
Test Reason : Blood Pressure : / mmHG Vent. Rate : 085 BPM Atrial Rate : 085 BPM P-R Int : 130 ms QRS Dur : 082 ms QT Int : 370 ms P-R-T Axes : -01 026 007 degrees QTc Int : 440 ms Sinus rhythm with occasional Premature ventricular complexes Otherwise normal ECG No previous ECGs available Confirmed by Kenan Clayton ([id number]) on 01/25/2021 5:51:33 AM Referred By: REFERRED SELF Confirmed By:Kenan Clayton
[2021-01-25 09:47] LABS: Albumin Level 2.2 gm/dl (3.4-5.0); BUN Creatinine Ratio 15.8 (10-20); Calcium 8.1 mg/dl (8.5-10.1); Est GFR (African American) 99.6 ml/min; Est GFR (Non-African American) 85.9 ml/min; Potassium 4.1 mmol/L (3.5-5.1)
[2021-01-25 09:50] LABS: Albumin Globulin Ratio 0.6 (0.9-2); Bilirubin,Total 0.9 mg/dl (0.2-1); Globulin 3.8 gm/dl (2.5-4.0)
[2021-01-25] MEDS: DOXYCYCLINE HYCLATE 100 MG CAP PO SCH (09:58)
[2021-01-25] MEDS: lisinopril 10 MG TAB PO SCH (09:58)
[2021-01-25 10:13] LABS: ALC (manual) 2.83 K/uL (1.2-3.4); ANC (manual) 3.16 K/uL (1.4-6.5); Eosinophils # (manual) 0.12 K/uL (0-0.5); Eosinophils % (manual) 1.8 %; Hematocrit (blood only) 43.6 % (42-52); Hemoglobin 14.7 g/dL (14.0-18.0); Lymphocytes # (manual) 0.75 K/uL (1.2-3.4); Lymphocytes % (manual) 11.5 %; Mean Corpuscular Hgb Conc 33.7 g/dL (32-36); Mean Platelet Volume 10.5 fL (7.4-10.4); Monocytes % (manual) 6.2 %; Neutrophils # (manual) 3.16 K/uL (1.4-6.5); Neutrophils % (manual) 48.6 %; Platelet Count 117 K/uL (130-400); RDW Coefficient of Variation 13.4 % (11.5-14.5); RDW Standard Deviation 42.4 fL (36.4-46.3); Reactive Lymphocytes # (manual) 2.08 K/uL; Reactive Lymphocytes % (manual) 31.9 %; Red Blood Count 5.07 M/uL (4.7-6.1); White Blood Count 6.51 K/uL (4.8-10.8)
[2021-01-25] MEDS: cefTRIAXone SODIUM 2,000 MG in DEXTROSE 5% 50 ML IV SCH (10:17)
--- NOTE | 2021-01-25 13:28 | Hospitalist Progress Note ---
Date of Service January 25, 2021 Assessment & Plan (1) Fever: (2) Lactic acidosis: (3) Positive Lyme disease serology: (4) JOSE (acute kidney injury): Plan: Patient is a 65 yr male who has known past medical history of HTN, history of TIA who presents to ED secondary to ill feeling and fever off and on x3 weeks. He also reports 2 syncopal episodes in the last 3 weeks. Lyme disease History of tick bite Serology positive for Lyme's disease Started on doxycycline Cultures negative to date Advised to follow-up with PCP upon discharge Syncope Likely secondary to dehydration Patient admits to have very poor oral intake due to tick disease for about [address]: No acute abnormality No arrhythmias on telemetry Echo: Normal LV chamber size and wall thickness. Low normal LV systolic function, EF 50 to 55%. No segmental left ventricle wall motion abnormality. Grade 1 diastolic dysfunction with moderate aortic valve calcification Carotid USD:No evidence for a hemodynamically significant stenosis. Acute bronchitis CXR: No acute cardiopulmonary abnormality Procalcitonin 4.91> 1.0 Received IV Rocephin, doxycycline Clinically improved Transition to cefdinir, doxycycline to complete the course Acute kidney injury Likely prerenal Resolved with IV fluids Lactic acidosis resolved with IVF Thrombocytopenia possible in setting of infection/tick borne illness Monitor CBC HTN continue lisinopril daily monitor DVT px: scd/teds, thrombocytopenia Code Status Full Code Disposition: Home Admission and Anticipated Discharge Date Admission Date: January 24, 2021 Subjective Patient is seen and examined bedside States feeling much better today Offers no complaints Cough much improved Denies chest pain, shortness of breath, dizziness, nausea, abdominal pain, diarrhea Eager to get discharged Review of Systems Review of Systems: All systems reviewed & are unremarkable except as noted in Subjective Physical Exam Physical Exam: Physical Exam: Vitals signs as noted above General Appearance:Obese, no apparent distress Head: normocephalic, Atraumatic Eyes: normal inspection, EOMI Neck: supple, Trachea midline Respiratory/Chest: Normal breath sounds, CTA Cardiovascular: S1, S2, No murmur Abdomen/GI:Soft, Non tender, Bowel sounds present Extremities/Musculoskeletal:normal inspection, no edema Neurologic/Psych:AAOX3, grossly no focal neurological deficits Skin: normal color, warm, + multiple tick bite lesions Results & Data Results & Data ([facility]) Vital Signs (Past 12 Hours) Vital Signs Temp Pulse Pulse Resp BP Pulse Ox 01/25/21 09:00 63 01/25/21 08:00 36.6 C 68 18 101/63 95 01/25/21 04:00 36.6 C 59 L 18 118/72 97 Laboratory Results Short CBC 01/25/21 Range/Units 09:12 WBC 6.51 (4.8-10.8) K/uL Hgb 14.7 (14.0-18.0) g/dL Hct 43.6 (42-52) % Plt Count 117 L D (130-400) K/uL BMP 01/25/21 09:12 Sodium 142 Potassium 4.1 Chloride 109 H Carbon Dioxide 25 BUN 15 Creatinine 0.94 Glucose 119 H Calcium 8.1 L Liver Function 01/25/21 Range/Units 09:12 Total Bilirubin 0.9 (0.2-1) mg/dl AST 31 (15-37) U/L ALT 36 (12-78) U/L Alkaline Phosphatase 72 (45-117) U/L Albumin 2.2 L (3.4-5.0) gm/dl
--- NOTE | 2021-01-25 15:21 | Discharge Summary ---
Date of Service January 25, 2021 Admission HPI Per Admitting Provider History obtained from patient, family, and records. Medical history significant for hypertension, history TIA, history DVT status post anticoagulation, urolithiasis. Patient has not been well the last 2 weeks. Junky cough symptoms with shortness of breath, fever, chills, headaches with coughing, fever. No syncope as per patient Patient gives history of tick bites [place] prior to onset of symptoms. Patient seen at PCPs office last week. Impression was pneumonitis. Patient prescribed prednisone and azithromycin course. Outpatient COVID-19 test was negative. Worsening symptoms 2 days after seeing PCP. Nausea, emesis. No abdominal pain. Patient evaluated at [facility] ER [address] angio chest negative for pulmonary embolism. No dense consolidation or findings typical of COVID-19 infection appreciated. Patient discharged from the ER. Cough symptoms improving as per patient. Patient still noted to be weak at home by family and confused. Still febrile episodes as per family. Poor appetite. Patient brought to the ER for evaluation. Improved mentation after IV hydration administered at the ER as per patient son. 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 Admission Exam Per Admitting Provider Physical Exam Physical Exam: GENERAL: Slightly uncomfortable, obese, no respiratory distress SKIN: Normal color, warm HEENT: [place] palpebral conjunctivae, no ptosis, dry buccal mucosa NECK : Supple, short neck, no tenderness CHEST : CTA, no tenderness HEART : RRR, no obvious murmurs ABDOMEN: Some distention, nontender EXTREMITIES : No LE swelling/tenderness, no other conspicuous deformities noted NEUROLOGIC : Coherent, no facial asymmetry, no other gross focality Principal Diagnosis Lyme disease Acute bronchitis Syncope Acute kidney injury Thrombocytopenia Discharge Data Allergies Allergy/AdvReac Type Severity Reaction Status Date / Time amoxicillin Allergy Rash Verified 01/23/21 19:15 Consultations 01/23/21 19:49 ED Decision to Admit Stat Ordered Studies 01/23/21 17:57 CT head/brain wo con Stat 01/24/21 10:18 US carotid doppler BI Routine Hospital Course (1) Fever: (2) Lactic acidosis: (3) Positive Lyme disease serology: (4) JOSE (acute kidney injury): Patient is a 65 yr male who has known past medical history of HTN, history of TIA who presents to ED secondary to ill feeling and fever off and on x3 weeks. He also reports 2 syncopal episodes in the last 3 weeks. Lyme disease History of tick bite Serology positive for Lyme's disease Started on doxycycline Cultures negative to date Advised to follow-up with PCP upon discharge Syncope Likely secondary to dehydration Patient admits to have very poor oral intake due to tick disease for about [address]: No acute abnormality No arrhythmias on telemetry Echo: Normal LV chamber size and wall thickness. Low normal LV systolic function, EF 50 to 55%. No segmental left ventricle wall motion abnormality. Grade 1 diastolic dysfunction with moderate aortic valve calcification Carotid USD:No evidence for a hemodynamically significant stenosis. Acute bronchitis CXR: No acute cardiopulmonary abnormality Procalcitonin 4.91> 1.0 Received IV Rocephin, doxycycline Clinically improved Transition to cefdinir, doxycycline to complete the course Acute kidney injury Likely prerenal Resolved with IV fluids Lactic acidosis resolved with IVF Thrombocytopenia possible in setting of infection/tick borne illness Monitor CBC HTN continue lisinopril daily monitor DVT px: scd/teds, thrombocytopenia Code Status Full Code Disposition: Home Total Time Total Time Spent Total Time Spent (In Minutes): 45 minutes Discharge Plan Discharge Items Patient Disposition: Home - Self-Care Reason For Visit: FEVER Discharge Diagnosis: Lyme disease Acute bronchitis Syncope Acute kidney injury Thrombocytopenia Condition on Discharge: Fair Activity: Per Instructions section Exercise/Sports: Gradually increase as tolerated Non-emergency contact: Primary Care Provider Call non-emergency contact if: you have any medication questions, your symptoms worsen, your pain is concerning for you and you have a fever Follow-up/Referrals: Juvenal Reddy MD [Primary Care Provider] - (Date & Time 01/28/2021 2:00 PM Provider Dylan Melo MD [facility] ) Diet: Heart Healthy Addtl Attending Provider Instructions: Follow-up with your primary care physician on 01/28/2021 2:00 PM ---Complete the antibiotic course as prescribed for Lyme's disease, bronchitis. Seek immediate medical attention if your symptoms reoccur or worsen Please take all medications as instructed on discharge list below. Please call if you have any questions or problems. You can reach a [facility] hospitalist on duty at [facility] 24 hours a day by calling [phone] Pending Studies at Discharge: Yes Studies:: Blood Cultures Stand-Alone Forms: My [facility], Smoking Cessation Medications and DC Order Prescriptions: New doxycycline hyclate 100 mg Capsule 100 mg PO BID Qty: 28 RF: 0 cefdinir 300 mg capsule 300 mg PO BID Qty: 6 RF: 0 Continued benzonatate 100 mg capsule 100 mg PO TID PRN (Reason: Cough) RF: 0 lisinopril 10 mg tablet 10 mg PO DAILY RF: 0 Discontinued prednisone 20 mg tablet 20 mg PO UD RF: 0 Discharge Orders: Discharge Order (Routine); Ordered 01/25/21 Ordered By: Zoran Romero Admission Data Admit Date/Time: 01/24/21 14:10 Attending Provider: Zoran Romero Admit Provider: Ralph Moncada Primary Care Provider: Juvenal Reddy Other Providers: Danielle Jeffries ; Ralph Moncada Other Interventions: Discharge Summary Assessment (RN) Last Done: 01/25/21 14:25
[2021-01-26 08:07] LABS: 18KDIGG Band REACTIVE; 23KDIGG Band NON-REACTIVE; 23KDIGM Band NON-REACTIVE; 28KDIGG Band NON-REACTIVE; 30KDIGG Band NON-REACTIVE; 39KDIGG Band NON-REACTIVE; 39KDIGM Band NON-REACTIVE; 41KDIGG Band NON-REACTIVE; 41KDIGM Band NON-REACTIVE; 45KDIGG Band NON-REACTIVE; 58KDIGG Band NON-REACTIVE; 66KDIGG Band NON-REACTIVE; 93KDIGG Band NON-REACTIVE; Lyme Antibodies, WB IgG NEGATIVE (NEGATIVE); Lyme Antibodies, WB IgM NEGATIVE (NEGATIVE)
[2021-01-26 17:16] LABS: Babesia microti DNA Not Detected (Not Detected)
== END 2021-01-25 14:50 | disposition home or self-care (01) | DRG 868 ==
LOC: ED 15:11 → 3N 15:11 → 2N 01-24 10:16